=== PATIENT | male | born 1995 | race Two or more races ===

== ENCOUNTER 2021-03-03 01:23 | Inpatient (IN) | payer BC, OTHER ==
[~2021-03-03] VITALS: Ht 188 cm; Wt 95.0 kg
--- NOTE | 2021-03-03 01:34 | NUR ---
PT BIBA R99 C/O OD ON METH, 1G IN 2 DAYS. PT RESTLESS
[2021-03-03] MEDS ORDERED: OLANZAPINE 10 MG VIAL IM ONE ×3 (01:55→07:00)
[2021-03-03 02:31] LABS: BASOPHILS # (AUTO) 0.1 K/uL (0.0-0.2); BASOPHILS % (AUTO) 0.3 % (0.0-2.0); EOSINOPHILS % (AUTO) 0.2 % (0.0-6.0); HEMATOCRIT 53 % (39-51); HEMOGLOBIN 18.3 g/dL (13.5-17.5); LYMPHOCYTES % (AUTO) 18.2 % (20.0-44.0); MEAN CORPUSCULAR HGB CONC 35 g/dl (31.0-36.0); MEAN CORPUSCULAR VOLUME 85 fL (80-96); MONOCYTES # (AUTO) 2.3 K/uL (0.1-1.30); MONOCYTES % (AUTO) 14.1 % (2.0-12.0); NEUTROPHILS # (AUTO) 11.1 K/uL (1.8-8.9); NEUTROPHILS % (AUTO) 67.2 % (43.0-81.0); PLATELET COUNT (AUTO) 406 K/uL (150-450); RED BLOOD CELL COUNT(AUTO) 6.21 MIL/uL (4.5-6.0); WHITE BLOOD COUNT (AUTO) 16.5 K/uL (4.3-11.0)
[2021-03-03 02:36] LABS: CARBON DIOXIDE 24 mmol/L (21-32); CHLORIDE 99 mmol/L (98-107); CREATININE 3.2 mg/dL (0.6-1.3); GLUCOSE 94 mg/dL (74-106); POTASSIUM 5.2 mmol/L (3.5-5.1); SODIUM SERUM 137 mmol/L (136-145); UREA NITROGEN, BLOOD 38 mg/dL (7-18)
[2021-03-03 02:42] LABS: ALANINE AMINOTRANSFERASE 73 U/L (12-78); ALKALINE PHOSPHATASE 100 U/L (46-116); ASPARTATE AMINOTRANSFERASE 104 U/L (15-37); BILIRUBIN,DIRECT 0.2 mg/dL (0.0-0.2); BILIRUBIN,TOTAL 0.8 mg/dL (0.2-1.0); TOTAL PROTEIN, SERUM 9.6 g/dL (6.4-8.2)
--- NOTE | 2021-03-03 02:47 | NUR ---
INITIATED RAC#18G ON NS
--- NOTE | 2021-03-03 02:50 | NUR ---
COLLECTED URINE AND SENT TO LAB
[2021-03-03 02:51] LABS: ACETAMINOPHEN < 2 ug/ml (10-30); ALCOHOL, BLOOD < 3 mg/dL (0-0)
[2021-03-03] MEDS ORDERED: LORAZEPAM INJ 2 MG/ML VIAL IV ONE ×2 (03:00→07:00)
[2021-03-03] MEDS ORDERED: IV NS 0.9% 1,000 ML BAG IV ONE ×2 (03:00)
[2021-03-03] MEDS ORDERED: diphenhydrAMINE HCL 50 MG/ML VIAL ONE (03:03)
[2021-03-03] MEDS ORDERED: LORAZEPAM INJ 2 MG/ML VIAL ONE (03:04)
--- NOTE | 2021-03-03 03:11 | NUR ---
BP 48/18 MD BARRAGAN AWARE
[2021-03-03 03:15] LABS: BILIRUBIN,URINE MODERATE (NEGATIVE); COLOR,URINE YELLOW (YELLOW); LEUKOCYTE ESTERASE ,URINE Negative (NEGATIVE); NITRITE, URINE Negative (NEGATIVE); PH,URINE 5.5 (5.0-8.0); PROTEIN,URINE 100 mg/dl (NEGATIVE); UGLUCOSE Negative (NEGATIVE); UROBILINOGEN,URINE 0.2 EU/dL (0.2)
[2021-03-03] MEDS ORDERED: diphenhydrAMINE HCL 50 MG/ML VIAL IM ONE (03:30)
[2021-03-03] MEDS ORDERED: CEFTRIAXONE 1 G in IV D5W 50 ML IV SCH (04:00)
[2021-03-03] MEDS ORDERED: ZOLPIDEM TARTRATE 5 MG TABLET PO PRN (04:00)
[2021-03-03] MEDS ORDERED: MAG HYDROX/AL HYDROX/SIMETH 30 ML UDC PO PRN (04:00)
[2021-03-03] MEDS ORDERED: ACETAMINOPHEN 325 MG TABLET PO PRN (04:00)
[2021-03-03] MEDS ORDERED: Z GUARD REMEDY 2 OZ OINT TP PRN (04:00)
[2021-03-03] MEDS ORDERED: ONDANSETRON HCL/PF 4 MG/2 ML VIAL IVP PRN (04:00)
[2021-03-03] MEDS ORDERED: MAGNESIUM HYDROXIDE 30 ML UDC PO PRN (04:00)
[2021-03-03] MEDS ORDERED: LORAZEPAM INJ 2 MG/ML VIAL IV PRN (04:00)
[2021-03-03] MEDS ORDERED: CEFTRIAXONE 1GM BAG (ER ONLY) 50 ML IV ONE (05:20)
--- NOTE | 2021-03-03 06:43 | NUR ---
COVID RESULTS POSITIVE; PLACED IN CONTACT DROPLET ISO
--- NOTE | 2021-03-03 06:43 | NUR ---
PER MD ORDER TO D/C F/C. F/C SALLIE
--- NOTE | 2021-03-03 06:52 | NUR ---
[employer] MECH[employer] CALLED HOUSE SUP FOR ICU BED
[2021-03-03] MEDS ORDERED: MIRT-90 PO (07:35)
[2021-03-03] MEDS ORDERED: FOLI0.4T6 PO (07:35)
[2021-03-03] MEDS ORDERED: THIA100T88 PO (07:35)
[2021-03-03] MEDS ORDERED: BACL20TA PO (07:35)
[2021-03-03] MEDS ORDERED: HYDR50TA61 PO (07:35)
[2021-03-03] MEDS ORDERED: ONDA4TAB5 PO (07:35)
--- NOTE | 2021-03-03 08:09 | NUR ---
THE PATIENT IS RECEIVED IN ER BED #8. THE PATIENT IS ALERT AND ORIENTED TO VERBAL STIMULI. RESPIRATION REGULAR AND UNLABORED. THE PATIENT IS IN NO APPARENT DISTRESS. THE PATIENT IS CALM. ATTACHED TO THE MONITOR. WARM BLANKET PROVIDED FOR COMFORT. WILL CONTINUE TO MONITOR THE PATIENT.
--- NOTE | 2021-03-03 08:52 | NUR ---
Autumn bolanos in [facility] [place] - 03/03/21 at [address] RODRIGUEZ AT THE BEDSIDE
--- NOTE | 2021-03-03 09:02 | NUR ---
ROOM 108
--- NOTE | 2021-03-03 09:13 | NUR ---
COVID SWAB DONE AND SENT TO THE LAB
--- NOTE | 2021-03-03 09:31 | NUR ---
REPORT GIVEN TO NURSE CRISTOFER
--- NOTE | 2021-03-03 09:44 | NUR ---
THE PATIENT IS ALERT AND ORIENTED TO HIS NAME. DENIES PAIN. IN ROOM AIR AND DENIES SOB. RESPIRATION REGULAR AN UNLABORED. THE PATIENT IS TRANSFERED TO ROOM 106 IN STABLE CONDITION AND PER ACLS POLICY.
--- NOTE | 2021-03-03 09:49 | NUR ---
RN NOTE Received patient from ER, He is A/O X1 responsive to name, noted with involuntary movements of extremities, restless, appears anxious, follows directions able to transfer from gurney to bed by himself. He is cooperative with care. Per Serology report he is rapid + COVID, Initiated contact and droplet precautions, safety precautions implemented, bed locked in lowest position, call light within reach. Cynthia Mcintyre will monitor patient at a safe distance.
[2021-03-03] MEDS: IV NS 0.9% 1,000 ML IV PRN ×2 (10:00→18:03)
--- NOTE | 2021-03-03 10:50 | NUR ---
SS note SS consult requested for overdose. pt is a 25-year-old, male. Upon arrival to the med-surg unit, SW was notified by pt's RN Juliano that the pt is Covid positive and has been alert and oriented x1. Pt is not interviewable as this time and presents with shakiness/withdrawal symptoms. PLAN: SS will f/u with the pt at a later time when he is more alert and oriented for psychosocial assessment and to assess pt's needs for community resources.
[2021-03-03 12:00] VITALS: BP 122/98
[2021-03-03 16:00] VITALS: BP 97/43
--- NOTE | 2021-03-03 18:58 | NUR ---
RN CLOSING NOTE Patient is awake, A/O X [address], no respiratory distress, no SOB. On contact/droplet precautions for COVID but asymptomatic. Sinus rhythm. Still noted confused, with involuntary mild movements from extremities. Denies any pain or distress. On IV hydration NS 125cc/hr with no s/sx of infiltration. Safety precautions implemented, bed locked in lowest position, call light within reach.
--- NOTE | 2021-03-03 19:40 | NUR ---
RN NOTES, PATIENT IN BED EATING DINNER, NO DISTRESS NOTED, NO SOB AT ROOM AIR, IVF INFUSING WELL AND PATIENT TOLERATED WELL, WILL CONTINUE TO MONITOR CLOSELY.
--- NOTE | 2021-03-03 20:26 | NUR ---
RN NOTES, PATIENT ASKING TO LEAVE AMA, EXPLAINED RISKS AND BENEFITS, STILL REFUSED TO STAY, REMOVED IV LINE HIMSELF AND TELE MONITOR, LUCILA BURNS FEATHER TRIMMER, AWARE.
== END 2021-03-03 22:09 | disposition left against medical advice (07) | DRG 917 ==
LOC: ER 01:25 → TRANSITION 07:37 → TELE1 08:53
DX: T43.621A Poisoning by amphetamines, accidental (unintentional), initial encounter (principal); N17.0 Acute kidney failure with tubular necrosis; M62.82 Rhabdomyolysis; E87.5 Hyperkalemia; Y92.9 Unspecified place or not applicable; D75.1 Secondary polycythemia; F17.200 Nicotine dependence, unspecified, uncomplicated; D72.829 Elevated white blood cell count, unspecified; Z20.822 Contact with and (suspected) exposure to COVID-19; F19.10 Other psychoactive substance abuse, uncomplicated
CPT/HCPCS: 36415; 71045-TC; 80048-TC; 80076-TC; 82550-TC; 82553; 82962-TC; 85025-TC; 87081-TC; C9803; G0378; G0480; J0696; J1200; J2060; J3490; J7030; J7060; U0003